=== PATIENT | male | born 1950 | race Caucasian/White ===

== ENCOUNTER 2023-11-05 09:32 | Outpatient (CLI) | payer MEDICARE | END 2023-11-05 09:33 | disposition home or self-care (01) | LOC: NM 09:32 | PROVIDERS: ATTEND Psychiatry & Neurology Neurology | DX: R29.818 Other symptoms and signs involving the nervous system (principal); R94.8 Abnormal results of function studies of other organs and systems | CPT/HCPCS: 78803; A9584 ×2 ==

== ENCOUNTER 2023-12-09 13:28 | Emergency (ER) | payer MEDICARE, OTHER ==
[2023-12-09] MEDS ORDERED: Boostrix 0.5 ML (Tdap) VIAL (>/=7 yrs of age) ONE (18:00)
[2023-12-09] MEDS ORDERED: Acetaminophen 500 MG TAB ONE (18:00)
== END 2023-12-09 18:30 | disposition home or self-care (01) ==
LOC: ERS 13:28
DX: S98.141A Partial traumatic amputation of one right lesser toe, initial encounter (principal); I10 Essential (primary) hypertension; W45.0XXA Nail entering through skin, initial encounter
CPT/HCPCS: 90471; 90715